=== PATIENT | male | born 1950 | race Caucasian/White ===

== ENCOUNTER 2020-12-02 16:28 | Emergency (ER) | payer MEDICARE ==
[~2020-12-02] VITALS: Ht 188 cm; Wt 94.3 kg
--- NOTE | 2020-12-02 17:33 | NUR ---
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
--- NOTE | 2020-12-02 18:19 | NUR ---
PT HAD MEDICAL SCREENING, ABD AORTIC ANEURYSM SEEN ON ULTRASOUND, SENT HERE. PT DENIES ANY SX. VSS, ON MONITORS (BP, SPO2, CARDIAC). PT REQUESTING BATHROOM.
[2020-12-02 18:35] LABS: ALBUMIN 4.2 g/dL (3.4-5.0); ANION GAP 5 mmol/L (5-15); CALCIUM 9.2 mg/dL (8.5-10.1); CHLORIDE 101 mmol/L (98-107); CREATININE 1.13 mg/dL (0.7-1.3)
--- NOTE | 2020-12-02 18:45 | NUR ---
TO CT SCAN
[2020-12-02 18:47] LABS: BASOPHILS % (AUTO) 1 % (0-1); EOSINOPHILS % (AUTO) 1 % (1-7); LYMPHOCYTES % (AUTO) 29 % (22-44); MEAN CORPUSCULAR HEMOGLOBIN 33.5 pg (27.5-34.5); MEAN CORPUSCULAR HGB CONC 34.1 g/dL (33.2-36.2); MEAN PLATELET VOLUME 8.5 fL (7.4-10.4); MONOCYTES % (AUTO) 10 % (2-9); NEUTROPHILS % (AUTO) 60 % (42-75); PLATELET COUNT 248 x10^3/uL (130-400); RED BLOOD COUNT 4.52 x10^6/uL (4.38-5.82); RED CELL DISTRIBUTION WIDTH 12.3 % (9.4-14.8)
[2020-12-02] MEDS ORDERED: OMNIPAQUE 350 MG/ML, 100ML BOTTLE ONE (19:22)
[2020-12-02 19:25] VITALS: BP_DIAS 91
[2020-12-02 21:04] VITALS: BP_SYST 155
== END 2020-12-02 21:06 | disposition home or self-care (01) ==
LOC: ED 21:00
DX: I71.4 Abdominal aortic aneurysm, without rupture (principal); I10 Essential (primary) hypertension; Z87.891 Personal history of nicotine dependence
CPT/HCPCS: 36415; 71275; 74175; 80048; 82040; 85025; 99285; Q9967

== ENCOUNTER 2020-12-06 07:35 | Emergency (ER) | payer MEDICARE ==
[~2020-12-06] VITALS: Ht 188 cm; Wt 95.0 kg
[2020-12-06] MEDS ORDERED: SODIUM CHLORIDE 0.9% 1,000ML IVBOLUS ONE (08:00)
[2020-12-06] MEDS ORDERED: hydrALAzine 20 MG/ML, 1ML IV ONE ×2 (08:00→08:30)
[2020-12-06] MEDS ORDERED: SODIUM CHLORIDE FLUSH 10ML SYR IVF ONE (08:00)
[2020-12-06] MEDS ORDERED: PLEASE ENTER HEIGHT AND WEIGHT MC SCH (08:00)
--- NOTE | 2020-12-06 08:00 | NUR ---
DXd WITH 8CM ANERYSM LAST WEEK. STATED FEELS LIKE IT POPPED. PT PRESENTS WITH DIZZINESS AND BACK PAIN With assessment good color manual bp 210 bilaterally; hr 71 ecg obtained erp at bedside medicated per emar with po ativan for anxiety (rated at 9/10) and 5mg of hydralazine
[2020-12-06] MEDS ORDERED: hydrALAzine 20 MG/ML, 1ML ONE (08:02)
[2020-12-06] MEDS ORDERED: LORazepam 1MG TABLET ONE (08:02)
[2020-12-06] MEDS ORDERED: LORazepam 1MG TABLET PO ONE (08:30)
[2020-12-06 08:31] LABS: ALANINE AMINOTRANSFERASE 36 U/L (12-78); ALBUMIN 3.9 g/dL (3.4-5.0); CREATININE 1.11 mg/dL (0.7-1.3)
[2020-12-06 08:32] LABS: BASOPHILS % (AUTO) 1 % (0-1); EOSINOPHILS % (AUTO) 2 % (1-7); LYMPHOCYTES % (AUTO) 34 % (22-44); MEAN CORPUSCULAR HEMOGLOBIN 34.1 pg (27.5-34.5); MEAN CORPUSCULAR HGB CONC 34.7 g/dL (33.2-36.2); MEAN PLATELET VOLUME 8.5 fL (7.4-10.4); MONOCYTES % (AUTO) 10 % (2-9); NEUTROPHILS % (AUTO) 53 % (42-75); PLATELET COUNT 216 x10^3/uL (130-400); RED BLOOD COUNT 4.43 x10^6/uL (4.38-5.82); RED CELL DISTRIBUTION WIDTH 12.1 % (9.4-14.8)
[2020-12-06 08:35] LABS: ALKALINE PHOSPHATASE 66 U/L (45-117); BILIRUBIN,TOTAL 0.5 mg/dL (0.2-1.0); TROPONIN I < 0.015 ng/mL (0.000-0.045)
--- NOTE | 2020-12-06 08:36 | NUR ---
ASSUMED CARE OF PT, UPDATED BY RORY. COPELAND. PT INSTRUCTED HE IS NPO AND WE WILL NEED URINE SAMPLE (PROVIDED URINAL). HE WAS ALSO INSTRUCTED NOT TO GET OOB W/O STAFF PRESENT D/T MEDICATION ADMINISTRATION AND HIS REPORT OF FEELING DIZZY. BEDSIDE, CALL LIGHT W/IN REACH. STRAP SETTER CALLED, REPORTED SHE COULD USE THE LABS FROM 12/02 AND STATED THIS WOULD BE FINE. SHE IS ON HER WAY.
[2020-12-06 08:40] LABS: ANION GAP 3 mmol/L (5-15); CHLORIDE 104 mmol/L (98-107)
[2020-12-06] MEDS ORDERED: OMNIPAQUE 350 MG/ML, 100ML BOTTLE ONE (08:45)
--- NOTE | 2020-12-06 08:45 | NUR ---
PT TO CTA
--- NOTE | 2020-12-06 09:04 | NUR ---
pt back from cta. pt hooked back up to monitors. vss, nadn. call light w/in reach.
[2020-12-06 09:16] LABS: MICROSCOPIC NOT IND
--- NOTE | 2020-12-06 10:10 | NUR ---
pt resting in gurney, denies any need. vss, nadn, call light w/in reach.
--- NOTE | 2020-12-06 11:30 | NUR ---
POC IS D/C, PT VSS. WAITING FOR DC PAPERWORK. CALL LIGHT W/ IN REACH.
[2020-12-06 12:03] VITALS: BP 136/85
--- NOTE | 2020-12-06 12:04 | NUR ---
Patient given discharge instructions and they have confirmed that they understand the instructions. Patient ambulatory with steady gait.
== END 2020-12-06 12:19 | disposition home or self-care (01) ==
LOC: ED 08:36
DX: R42 Dizziness and giddiness (principal); I71.4 Abdominal aortic aneurysm, without rupture; I10 Essential (primary) hypertension; Z87.891 Personal history of nicotine dependence
CPT/HCPCS: 36415; 71045; 71275; 74175; 80053; 81003; 84484; 85025; 93005; 96361; 96374; 99285; J0360; J7030; Q9967